=== PATIENT | male | born 1995 | race Caucasian/White ===

== ENCOUNTER 2023-07-27 18:59 | Emergency (ER) | payer OTHER ==
[~2023-07-27] VITALS: Ht 177.8 cm; Wt 90.7 kg
[2023-07-27 19:14] VITALS: TEMP 98.4
[2023-07-27] MEDS ORDERED: dexaMETHasone SOD PHOSPHATE 1 ML ONE (19:58)
[2023-07-27] MEDS ORDERED: KETOROLAC TROMETHAMINE 15 MG/ML VIAL ONE (19:58)
[2023-07-27] MEDS ORDERED: dexaMETHasone SOD PHOSPHATE 10 MG/ML VIAL IV ONE (20:00)
[2023-07-27] MEDS ORDERED: KETOROLAC TROMETHAMINE 15 MG/ML VIAL IV ONE (20:00)
[2023-07-27] MEDS ORDERED: IV NS 0.9% 1,000 ML IV ONE (20:00)
[2023-07-27 20:02] LABS: BASOPHILS # (AUTO) 0.1 K/uL (0.0-0.2); BASOPHILS % (AUTO) 0.4 % (0.0-2.0); EOSINOPHILS # (AUTO) 0.2 K/uL (0.0-0.7); EOSINOPHILS % (AUTO) 1.3 % (0.0-6.0); HEMATOCRIT 42 % (39-51); LYMPHOCYTES # (AUTO) 3.6 K/uL (0.8-4.8); LYMPHOCYTES % (AUTO) 21.6 % (20.0-44.0); MEAN CORPUSCULAR HEMOGLOBIN 29 PG (26.0-33.0); MEAN CORPUSCULAR HGB CONC 34 g/dl (31.0-36.0); MEAN CORPUSCULAR VOLUME 87 fL (80-96); MONOCYTES # (AUTO) 1.7 K/uL (0.1-1.30); MONOCYTES % (AUTO) 10.1 % (2.0-12.0); NEUTROPHILS % (AUTO) 66.6 % (43.0-81.0); PLATELET COUNT (AUTO) 326 K/uL (150-450); RED BLOOD CELL COUNT(AUTO) 4.79 MIL/uL (4.5-6.0); RED CELL DISTRIBUTION WIDTH 12.9 % (11.5-15.0); WHITE BLOOD COUNT (AUTO) 16.5 K/uL (4.3-11.0)
[2023-07-27] MEDS ORDERED: IV NS 0.9% 250 ML IV ONE (20:06)
[2023-07-27] MEDS ORDERED: IOHEXOL-300 100 ML VIAL IV ONE (20:06)
[2023-07-27 20:13] LABS: CALCIUM, SERUM 8.7 mg/dL (8.5-10.1); POTASSIUM 3.3 mmol/L (3.5-5.1)
[2023-07-27] MEDS ORDERED: MORPHINE SULFATE INJ 2 MG/ML DISP.SYRIN IV ONE (20:30)
[2023-07-27] MEDS ORDERED: MORPHINE SULFATE INJ 4 MG/ML DISP.SYRIN ONE (20:34)
[2023-07-27] MEDS ORDERED: PENICILLIN IV SCH (21:00)
[2023-07-27] MEDS ORDERED: D5W IV SCH (21:00)
[2023-07-27] MEDS ORDERED: FLAGYL/NS RTU 500 MG/100 ML PIGGYBACK IV ONE (21:00)
[2023-07-27] MEDS ORDERED: METRONIDAZOLE 500MG/ NS 100ML 100 ML IV ONE (21:01)
[2023-07-27] MEDS ORDERED: IBUP-1957 PO (21:56)
[2023-07-27] MEDS ORDERED: HYDR-4303 PO (21:56)
[2023-07-27] MEDS ORDERED: CLIN300C12 PO (21:56)
[2023-07-27] MEDS ORDERED: PENICILLIN G BENZATHINE 2.4 MMU/4 ML ML IM ONE (22:00)
[2023-07-27] MEDS ORDERED: CEFTRIAXONE 2 G in IV D5W 100 ML IV SCH (22:00)
[2023-07-27] MEDS ORDERED: CEFTRIAXONE 1GM BAG (ER ONLY) 100 ML IV ONE (22:01)
[2023-07-27 23:00] VITALS: BP 145/79; O2SAT 98
== END 2023-07-27 23:00 | disposition home or self-care (01) ==
LOC: ER 18:59
DX: J36 Peritonsillar abscess (principal); Z20.822 Contact with and (suspected) exposure to COVID-19
CPT/HCPCS: 99285; 96365; 70491; 96375; 71045; 96367; 87426; 87804 ×2; 85025; 80048; 87040 ×2; 36415; J1100; J2270; J7030; J7050; J0696; Q9967; J1885; J7060